=== PATIENT | male | born 1960 | race Caucasian/White ===

== ENCOUNTER 2024-06-10 11:15 | Observation (INO) ==
--- NOTE | 2024-05-18 10:18 | PAT Medication Instructions ---
Medication Instructions Date of Service May 18, 2024 Home Medications aspirin 81 mg capsule 81 mg PO DAILY cholecalciferol (vitamin D3) 25 mcg (1,000 unit) capsule 25 mcg PO DAILY duloxetine 30 mg capsule,delayed release (Cymbalta) 30 mg PO BID fluticasone 500 mcg-salmeterol 50 mcg/dose blistr powdr for inhalation 1 inh inhalation BID gabapentin 300 mg capsule (Neurontin) 600 mg PO TID melatonin 3 mg capsule 3 mg PO HS PRN Insomnia multivitamin 1 tab PO DAILY ondansetron 4 mg disintegrating tablet 4 mg PO Q8H PRN Nausea And Vomiting oxcarbazepine 300 mg tablet (Trileptal) 300 mg PO BID pantoprazole 40 mg tablet,delayed release 40 mg PO QAM polyethylene glycol 3350 17 gram/dose oral powder 17 g PO DAILY PRN Constipation prazosin 2 mg capsule 2 mg PO HS zonisamide 25 mg capsule (Zonegran) 25 mg PO HS Percocet 1 tab PO DAILY PRN Pain ASK your prescriber and surgeon aspirin 81 mg capsule 81 mg PO DAILY DO NOT take the morning of surgery cholecalciferol (vitamin D3) 25 mcg (1,000 unit) capsule 25 mcg PO DAILY multivitamin 1 tab PO DAILY polyethylene glycol 3350 17 gram/dose oral powder 17 g PO DAILY PRN Constipation Take morning of surgery With a small sip of water, OTHERWISE NOTHING TO EAT OR DRINK AFTER MIDNIGHT: duloxetine 30 mg capsule,delayed release (Cymbalta) 30 mg PO BID fluticasone 500 mcg-salmeterol 50 mcg/dose blistr powdr for inhalation 1 inh inhalation BID gabapentin 300 mg capsule (Neurontin) 600 mg PO TID ondansetron 4 mg disintegrating tablet 4 mg PO Q8H PRN Nausea And Vomiting (if needed) oxcarbazepine 300 mg tablet (Trileptal) 300 mg PO BID pantoprazole 40 mg tablet,delayed release 40 mg PO QAM Percocet 1 tab PO DAILY PRN Pain (if needed) Take evening before surgery duloxetine 30 mg capsule,delayed release (Cymbalta) 30 mg PO BID fluticasone 500 mcg-salmeterol 50 mcg/dose blistr powdr for inhalation 1 inh inhalation BID gabapentin 300 mg capsule (Neurontin) 600 mg PO TID melatonin 3 mg capsule 3 mg PO HS PRN Insomnia (if needed) ondansetron 4 mg disintegrating tablet 4 mg PO Q8H PRN Nausea And Vomiting (if needed) oxcarbazepine 300 mg tablet (Trileptal) 300 mg PO BID polyethylene glycol 3350 17 gram/dose oral powder 17 g PO DAILY PRN Constipation (if needed) prazosin 2 mg capsule 2 mg PO HS zonisamide 25 mg capsule (Zonegran) 25 mg PO HS Percocet 1 tab PO DAILY PRN Pain (if needed) Other Notes If you have any questions please call us at [phone] or [phone] or [phone] or [phone]
--- NOTE | 2024-05-23 10:15 | Anesthesiology Consultation ---
Date of Service May 23, 2024 Assessment & Plan (1) Encounter for pre-operative examination: - Infectious disease screening: Per assessment on 05/23/24- No known recent infectious disease contacts or current infectious disease symptoms. - Outpatient joint assessment: Pt currently scheduled for inpatient pathway. If surgeon requests review for outpatient joint pathway, patient is not recommended candidate for outpatient joint program from anesthesia standpoint based on available information. - Cardiology visit (02/29/24): "Reports trials of simvastatin, atorvastatin, Ezetimibe for lipid medication managementadmits with all agents with both scheduled and alternative dosing he experienced muscle adverse effects.. Plan.. Encouraged lifestyle efforts.. ASCVD risk scoreintermediate/high risk.. CAC scoreindicates moderate/high intensity statinunable to tolerate statins.. Advised [id number] initiation for managementpatient will consider.." - Preop request clarification: Patient unaware if either PCP and/or cardiology preop requests needed from surgeon's perspective. Nothing formally ordered on received surgeon preop orders. Ortho visit from 05/23/24 in draft. Surgeon's office ([facility]) made aware that it is at their discretion if further preop evaluations needed (and to arrange if so). Patient acceptable risk for surgery from anesthesia perspective. Chart Review Chart Review: Patient seen in Pre Admission Testing Teaching & Discussion Pre-Anesthesia Teaching/Discussion Notes: Instructed NPO after midnight before surgery,except medications with 15 cc of water. Medication instructions provided according to the PAT guidelines. History Surgery Operation Date: 06/10/24 10:00 Proposed Procedures p Right Reverse Shoulder Arthroplasty, Possible Biceps Tenodesis - Adonay Quispe MD Height/Weight Height: 6 ft Weight: 83.6 kg Allergies Allergy/AdvReac Type Severity Reaction Status Date / Time bupropion [From Wellbutrin] Allergy Unknown Unknown Verified 05/23/24 08:36 ketorolac [From Toradol] Allergy Unknown Unknown Verified 05/23/24 08:36 valproic acid Allergy Unknown Unknown Verified 05/23/24 08:36 atorvastatin AdvReac Intermediate Muscle Verified 05/23/24 08:36 Cramps simvastatin AdvReac Intermediate Muscle Verified 05/23/24 08:36 Cramps effexor Allergy Unknown Unknown Uncoded 05/23/24 08:36 Medications Home Medications Medication Instructions Recorded Confirmed Last Taken aspirin 81 mg capsule 81 mg PO DAILY 04/11/24 05/23/24 Unknown duloxetine 30 mg capsule,delayed 30 mg PO BID 04/11/24 05/23/24 Unknown release (Cymbalta) fluticasone 500 mcg-salmeterol 50 1 inh inhalation BID 04/11/24 05/23/24 Unknown mcg/dose blistr powdr for inhalation gabapentin 300 mg capsule 600 mg PO TID 04/11/24 05/23/24 Unknown (Neurontin) melatonin 3 mg capsule 3 mg PO HS PRN Insomnia 04/11/24 05/23/24 Unknown multivitamin 1 tab PO DAILY 04/11/24 05/23/24 Unknown oxcarbazepine 300 mg tablet 300 mg PO BID 04/11/24 05/23/24 Unknown (Trileptal) pantoprazole 40 mg tablet,delayed 40 mg PO QAM 04/11/24 05/23/24 Unknown release polyethylene glycol 3350 17 17 g PO DAILY PRN Constipation 04/11/24 05/23/24 Unknown gram/dose oral powder prazosin 2 mg capsule 2 mg PO HS 04/11/24 05/23/24 Unknown zonisamide 25 mg capsule (Zonegran) 25 mg PO HS 04/11/24 05/23/24 Unknown Percocet 1 tab PO DAILY PRN Pain 05/12/24 05/23/24 Unknown Past Medical History Medical History Acid reflux Arthritis of right shoulder region Cervical radiculopathy COPD (chronic obstructive pulmonary disease) Coronary artery calcification Per [place] records, this was noted on CTS s/p unremarkable stress test 08/2023, Coronary artery Calcium CT 01/2024 with "No significant coronary artery calcium. Total Agatston score of 366.16 consistent with moderate coronary artery disease" Hearing loss Doesn't wear hearing aids all the time History of trigger finger Right - with carpal tunnel Lung nodule Monitored yearly - [facility] Numbness of upper extremity Bilateral, ongoing x years Exercise / Class Metabolic Activity III < 4 Walking/Shop/Light housework Past Surgical History Surgical History History of arthroscopy of right shoulder History of carpal tunnel release Left History of cervical spinal surgery C3-C7, Hardware present Hx of appendectomy Hx of cardiac catheterization 5+ years ago ([facility]) - No Stents Hx of colonoscopy Hx of esophagogastroduodenoscopy Hx of tonsillectomy Past Anesthesia History No Hx of Anesthesia Complications and No Family Hx of Anesthesia Complications History of PONV No Hx of PONV and No Hx of Motion Sickness Social History Smoking Status: Current every day smoker Smoking cigarettes per day: 1/2 PPD Do You Dip or Chew Tobacco: No Hx Alcohol Use: No Hx Substance Use: Yes (Medical [facility] - Flower- daily) Review of Systems Patient denies chest pain, shortness of breath, fever, chills, cough, wheezing. Physical Exam Vital Signs BP 104/67 P 63 TEMP 98.1 SP02 96%RA RESP 16 Physical Full cervical extension range of motion. Full TMJ range of motion. TMD 3 finger breaths Mallampati Score II Dentition: intact, + implants (sides/molars) Lungs: clear throughout to auscultation Cardiac: regular rate and rhythm, no murmurs noted Spine: normal Carotid arteries: negative bruit Extremities: no LE edema Lab Results Anesthesia Preop Results Results Anesthesia Widget: WBC 10.12 K/ul (4.8-10.8) 05/23/24 Hgb 14.8 g/dl (14.0-18.0) 05/23/24 Hct 43.5 % (42.0-52.0) 05/23/24 Plt 227 K/uL (130-400) 05/23/24 Na 137 mmol/L (136-145) 05/23/24 K 4.6 mmol/L (3.5-5.1) 05/23/24 Cl 103 mmol/L (98-107) 05/23/24 CO2 27 mmol/L (21-32) 05/23/24 BUN 16 mg/dl (6-23) 05/23/24 Creat 0.72 mg/dl (0.6-1.4) 05/23/24 Glucose Level 108 mg/dl (70-99(Fasting)) H 05/23/24 PT 11.2 Seconds (9.0-12.0) 05/23/24 PTT 29 Seconds (21-31) 05/23/24 INR 1.0 (0.9-1.1) 05/23/24 Blood Type B Positive 05/23/24 Antibody Screen NEGATIVE 05/23/24 Testing Electrocardiogram Date: 08/17/23 Findings: + NSR @ (70) Chest X-Ray Date: 02/05/24 No consolidation, pleural effusion or pneumothorax. Mildly exaggerated thoracic kyphosis. Mild convex right curvature thoracic spine. Tortuous aorta unchanged. Echocardiogram Date: 01/07/23 EF 50-55%. Dilated aortic root 3.8cm. Dilated ascending aorta 3.7cm. Mild AI. Normal wall motion. Stress Test Date: 08/17/23 Type: exercise Negative for ischemia by EKG criteria. 10.1 METS. 85% MPHR. Other Testing Coronary artery calcium CT Date: 02/02/24 Findings listed in 02/29/24 cardio note scanned into chart. "No significant coronary artery calcium. Total Agatston score of 366.16 consistent with moderate coronary artery disease.. Mild pericardial effusion. Stable 4 mm nodule in the left lower lobe.. Minimal atelectasis along the medial right middle lobe."
[~2024-06-10 11:15] MED LIST: BUPIVACAINE 0.5 % 5 MG/1 ML PF 10ML VIAL ONE
[2024-06-10] MEDS ORDERED: PROMETHAZINE HCL 6.25 MG in SODIUM CHLORIDE 0.9% 50 ML IV PRN (12:04)
[2024-06-10] MEDS ORDERED: ATROPINE SULFATE 0.1 MG/ML 10ML SYR IV PRN (12:04)
[2024-06-10] MEDS ORDERED: HYDROmorphone INJ 1 MG/ML SYRINGE IV PRN ×2 (12:04→17:11)
[2024-06-10] MEDS ORDERED: fentaNYL citrate PF 100 MCG/2 ML VIAL IV PRN (12:04)
[2024-06-10] MEDS ORDERED: ePHEDrine sulfate 50 MG/ML AMP IV PRN (12:04)
[2024-06-10] MEDS ORDERED: ONDANSETRON INJ 2 MG/ML 2 ML VIAL IV PRN ×2 (12:04→17:11)
[2024-06-10] MEDS: ACETAMINOPHEN 500 MG TAB PO SCH ×2 (12:15→21:14)
[2024-06-10] MEDS: LR 15ML/HR IV SCH (12:15)
[2024-06-10] MEDS: LR 60ML/HR IV SCH (12:16)
[2024-06-10] MEDS ORDERED: LIDOCAINE 2% 2 ML VIAL/AMP(20MG/ML) INFIL ONE (12:54)
[2024-06-10] MEDS ORDERED: PROPOFOL IV EMULSION 10 MG/ML 20 ML VIAL IV ONE ×2 (12:55→16:29)
[2024-06-10] MEDS ORDERED: ROCURONIUM BROMIDE 10 MG/ML 5 ML VIAL IV ONE ×2 (12:56→14:41)
[2024-06-10] MEDS ORDERED: DEXAMETHASONE SOD INJ 4 MG/ML VIAL ONE (12:57)
[2024-06-10] MEDS ORDERED: ONDANSETRON INJ 2 MG/ML 2 ML VIAL ONE (12:57)
[2024-06-10] MEDS ORDERED: MIDAZOLAM HCL 1 MG/ML 2ML VIAL ONE (12:58)
[2024-06-10] MEDS ORDERED: fentaNYL citrate PF 100 MCG/2 ML VIAL ONE (12:59)
--- NOTE | 2024-06-10 13:22 | History & Physical Bridge Note ---
Date of Service June 10, 2024 History & Physical Bridge Note I have examined the patient, reviewed the History & Physical and in the interval since the performance of the History & Physical I have noted the following changes of clinical significance: no changes noted
[2024-06-10] MEDS: TRANEXAMIC ACID 1,000 MG **IV Pre-op IV SCH (13:24)
[2024-06-10] MEDS: ceFAZolin 2000MG 2,000 MG/15 ML SYR IV SCH ×2 (14:03→22:12)
[2024-06-10] MEDS ORDERED: ALBUTEROL HFA 8 GM INHALER INH ONE (14:13)
[2024-06-10] MEDS: TRANEXAMIC ACID 1,000 MG **IV Intra-op IV SCH (16:00)
[2024-06-10] MEDS ORDERED: SUGAMMADEX SODIUM 200 MG/2 ML VIAL IV ONE (16:26)
--- NOTE | 2024-06-10 16:48 | Operative Report ---
PG Post Operative Report Pre & Post Diagnosis Operation Date: 06/10/24 13:00 Pre-Op Diagnosis: Arthritis of Right Shoulder Region, Rotator cuff tendinopathy, biceps tendonitis Post-Op Diagnosis: Arthritis of Right Shoulder Region, Rotator cuff tendinopathy, biceps te ndonitis, Shoulder Contracture I identified the patient and participated in the time-out.: Yes Procedure Operation Date: 06/10/24 13:00 Actual Procedures p Right Reverse Shoulder Arthroplasty, Biceps Tenodesis(Right) - Adonay Quispe MD Surgeon Adonay Quispe MD Automatic Beading Lathe Operator Dianna Dailey PA-C Estimated Blood Loss 150 Findings See Below Arthrex Univers Reverse Shoulder Arthroplasty was performed: Stem [place] size 13, 36 mm +2 offset suture cup, 36+3 humeral insert with Spacer +6, 24 mm 10 degree full standard augment baseplate, 20 mm modular post, 36+4/24 modular glenoid system glenosphere, Univers peripheral nonlocking screw 4.5 mm x 28 and 32 mm, Univers peripheral locking screw 5.5 x 24 and 24 mm EXAMINATION UNDER ANESTHESIA: Preoperative exam under anesthesia revealed the followin degrees of forward flexion, 30 degrees external rotation at the side, 90 degrees of abduction, 25 degrees of external rotation and 10 degrees of internal rotation with the arm abducted. Postoperatively, range of motion parameters after implantation of prosthesis revealed a stable prosthesis with range of motion parameters as follows: 130 of forward flexion, 45 of external rotation at the side, 120 of abduction, 90 of external rotation with the arm abducted, 30 of internal rotation with the arm abducted. The patient's safe range of motion included the ability to get to the back of the head. Internal rotation to the belly without significant tension. Specimens humeral head to pathology by routine Anesthesia Type General Regional Complications none Disposition Accompanied Patient To Recovery: Yes Disposition: Recovery Room Indications 64-year-old male presented with progressive, chronic left shoulder pain and rotator cuff dysfunction after previous shoulder arthroscopy with an outside clinic where advanced arthrosis was noted. Physical exam and advanced imaging were consistent with glenohumeral osteoarthritis and rotator cuff tendinosis with impingement, as well as bicipital tendinitis. Given the chronic pain related arthritis and rotator cuff dysfunction, I did offer reverse shoulder arthroplasty with bicipital tenodesis to address the symptoms. We reviewed the risk, benefits, and alternatives of this intervention in detail, as outlined in several clinical notes. Informed consent was documented in clinic, as the patient desired to proceed. Description of Procedure The patient was identified in the preoperative holding area. The operative extremity was marked. Regional block was administered by Anesthesia. The patient was then brought to the operating room and placed supine. Preliminary time-out procedure was performed. All were in agreement. General endotracheal anesthesia was induced without any issues. The patient was sat up in around 40-45 degrees of inclination in the beachchair position. Exam under anesthesia was performed confirming the above findings. Preoperative antibiotics were administered. TXA was infused. Sequential compressive devices were placed on her bilateral lower extremities for DVT prophylaxis. Bony prominences were inspected, well-padded and free of any evidence for peripheral nerve compression. The entire operative upper extremity was then prepped and draped in a normal sterile fashion for shoulder surgery, with use of padded Alejandre to hold the arm. Prior to incision, a second time-out procedure was performed confirming the patient, site, laterality and the procedure. All were in agreement. 1. Right shoulder open reverse total shoulder replacement with Arthrex Univers Revers system: A deltopectoral incision was utilized. Incision was carried out sharply and with electrocautery through the skin and subcutaneous tissues. The deltopectoral interval was developed. The cephalic vein was taken laterally. Subdeltoid space was developed bluntly. A deltoid brown retractor was placed to retract the deltoid laterally and superiorly. 1 cm of the superior border of the pectoralis major tendon insertion site was released in standard fashion to improve exposure. Clavipectoral fascia was removed with electrocautery. Extensive subacromial bursitis was encountered and this was completely removed with a Bovie. The lateral aspect of the conjoined tendon was then followed to its insertion site on the coracoid. The conjoined tendon was retracted medially. The biceps tendon was identified, enlarged consistent with tendinopathy. He was released space and the Bovie proximally along its tract to the superior labrum. It was freed from the biceps groove. A tenodesis was performed to the pectoralis major tendon as will be discussed in further detail below. A sharp Hohmann retractor was then placed into the interval and into the joint. Subscapularis tendon was still present and attached on the lesser tuberosity. The articular surface of the humeral head could be appreciated. The capsule with the subscapularis tendon was then released up the inferior humeral neck as one layer. The humeral head dislocated with successive extension and external rotation. Visualization of the humeral head revealed significant osteoarthritis and wear. The rotator cuff had tendinopathy and partial-thickness tearing of the subscapularis and full-thickness tearing of this infraspinatus. The top of the humeral head was identified. A starting pin was used to sound the humeral canal. The bone quality was moderate. Opening reamers were used to define the canal. The 6 mm reamer allowed alignment with the canal. The cutting guide was then placed on the reamer handle in the usual fashion. Humeral head appeared to be in 35-40 degrees of retroversion. The cutting guide was fixed with a breakaway pins. Sagittal saw was then used to create the humeral head cut. Blunt Hohmann was used posteriorly to ensure safety with a saw. Humeral head covering cap was then placed. We then proceeded over to glenoid. An anterior glenoid neck retractor was placed. The MGHL and SGHL were released off of the muscular portion of the subscapularis being mindful of palpating and identifying the axillary nerve to make sure it was free of injury during releases. Next, the interval between the IGHL and the muscular portions of the subscapularis was identified. My finger was on the axillary nerve to protect it during releases. The IGHL was then released up to around the 7 o'clock position. A blunt retractor was then placed to retract the humerus posteriorly. A sharp Hohmann retractor was placed at the 12 o'clock position. The glenoid deformity was evaluated. Extraneous capsulolabral tissue was dissected to reveal the bone anatomy. This confirmed our decision to proceed with preoperative virtual planning. The arm was placed around 30 degrees of flexion, 90 degrees of external rotation and 30 degrees of abduction to distract the humerus posteriorly. Labrum was circumferentially removed including the biceps tendon stump with a Bovie. The VIP positioning guide cannot sit with the plate in position because of the humeral head and posterior glenoid retractor being in the way. Additional inferior capsule was released with protection of the axillary nerve. We downsized the posterior glenoid retractor, but still cannot adequately access the VIP guide onto the glenoid face with good confidence. The humeral head was then dislocated once again to consider another humeral head. It did appear that there was some posterior articular surface and remaining, so the cut guide was replaced. Deeper neck cut. We reposition for glenoid exposure and use a smaller glenoid retractor in the posterior rim. This allowed better visualization. Arthrex virtual implant positioning guide set to the preplanned parameters was used to place an initial guide pin. The augment template was then placed. It seemed that we are in the appropriate position with our central pin and the augment would fit well. The short starting reamer was used over the pin to control depth. The 10 degree full augment reamer was then used over the pin after drilling the starting position. The depth was judged based on the preoperative plan. Once cartilage debrided from the subchondral bone the preparation was evaluated. We then reamed to the depth matching the preoperative plan. The central post drill was then used over the pin. There was no breach of the vault. Copious irrigation was performed to irrigate out the joint. The augment template was then dropped over the pin. There was good fill and fit and implant match. The planned glenoid baseplate and central post were then placed. The implant was firmly tamped down with good capture of the central post. We then drilled, measured, and placed 4 baseplate screws in the available positions. The inferior and superior positions were compression screws, while the anterior and posterior positions were locking screws. These were preplanned on the VIP system. The final construct appeared to be extremely strong as the entire glenoid and scapula moved together as one unit confirming excellent fixation of the baseplate. The peripheral assembler handbags was then used to clear out soft tissue and osteophytes that would impinge on the backside of the glenosphere. Next, the planned glenosphere was confirmed and opened on the back table. The glenosphere was then seated into the baseplate and impacted onto the mayberry taper. A dorado was used to test fixation, before resetting with additional mall eting. The central fixation screw was then placed. The joint was then copiously irrigated. Humerus was then brought back into view with external rotation, deltoid brown retractor and multiple blunt Homans. Successive trial broaches were then broached up to a size 13, which gave us excellent press-fit and agreed with the virtual plan. The trial stem was left in place. The cup reamer was used over the offset post. This area was irrigated. The final stem and suture cup prosthesis was then brought onto the field. It was positioned according to the rotation determined and impacted for a firm fix. A trial liner was then placed that would best accommodate the anatomy. The humerus was then reduced onto the glenoid with the arm in abduction and external rotation. There was room for more tensioning, so we subsequently upsized to a +9, which required a liner and spacer. The arm was taken out of the dwyer, taken through a physiologic range of motion. No evidence for impingement. No evidence for kick off. No shuck. Thus, the trials would be a most appropriate for stability. Final humeral spacer and poly component were opened. The tray spacer was fixed with the screw. The final poly was then placed. With the final components in place, humeral component was then reduced onto the glenosphere and final postoperative range of motion assessment was performed. Stability confirmed. This completed the open reverse total shoulder replacement. 2. Open biceps tenodesis: As dictated above, enlargement of the biceps tendon was noted consistent with tendinopathy. The tenodesis was necessary to keep appropriate tension relationship with the long head bicep. The tendon was released from the bicipital sheath using a Bovie and then tenodesed to the pectoralis major tendon using a #2 FiberWire suture in [id number] fashion 2 separate times. The tendon was then followed up as proximal as could be visualized and then tenotomized. Remaining stump was removed just proximal to the tenodesis site. This completed the open biceps tenodesis. The routine closing sequence was begun. Thorough pulse lavage irrigation was performed. Next, a 2-minute iodine solution soak was performed. The arm is held at 90 degrees of abduction and neutral rotation to allow the solution to lay in the wound. Gentle lavage using iodine solution was performed for 2 minutes. Pulse lavage was then used to thoroughly irrigate out the iodine solution. The wound was copiously irrigated. A total of 3 L normal saline was used. The deltopectoral interval was closed with #1 Vicryl suture. Subcutaneous tissues were closed with 2-0 Vicryl suture in a buried, interrupted fashion. Skin was closed with jacobo. The wound was dressed with xeroform, gauze, and ABDs, contained by Ioban. The patient was placed in a standard sling and turned over to the anesthesia team. The patient tolerated the procedure well, was extubated in the operating room without complication, and transferred to the PACU in stable condition. DISPOSITION: The patient will remain in sling for a total of 4 weeks. He will be admitted for observation based on preanesthetic testing recommendations and history of chronic opioid therapy. Routine postoperative oral antibiotic prophylaxis will be prescribed at discharge. Hand, wrist, and elbow range of motion exercises may be initiated. Formal therapy will be initiated starting with gentle active assisted range of motion. No strengthening will be permitted before 12 weeks. Physician investment sales assistant attestation: Dianna Dailey PA-C was present and scrubbed for the duration of the case. Skilled assistance was essential to prepping/draping, patient positioning, retraction, and wound closure. I attest to the content of the Intraoperative Record and any orders documented therein. Any exceptions are noted below.
[2024-06-10] MEDS ORDERED: diphenhydrAMINE 50 MG/ML VIAL IV PRN (17:11)
[2024-06-10] MEDS ORDERED: ALUMINUM/MAGNESIUM SUSP 30 ML UDC PO PRN (17:11)
[2024-06-10] MEDS ORDERED: MAGNESIUM HYDROXIDE SUSP 30 ML UDC PO PRN (17:11)
[2024-06-10] MEDS ORDERED: bisacodyL 10 MG SUPP PR PRN (17:11)
[2024-06-10] MEDS ORDERED: HYDROmorphone INJ 0.5 MG/0.5 ML SYR IV PRN (17:11)
[2024-06-10] MEDS ORDERED: NALOXONE HCL 0.4 MG/1 ML VIAL/CARP IV PRN (17:11)
[2024-06-10] MEDS ORDERED: POLYETHYLENE (MIRALAX) 17 GM PACK PO PRN (17:17)
[2024-06-10] MEDS ORDERED: MELATONIN 3 MG TAB PO PRN (17:36)
--- NOTE | 2024-06-10 17:51 | Anesthesiology Progress Note ---
Date of Service June 10, 2024 Anesthesia Post Procedure Vital Signs Vital Signs: Temp Pulse Pulse Resp BP Pulse Ox O2 Del Method 06/10/24 17:45 36.4 C L 64 19 98/58 L 92 Nasal Cannula, Oxymask 06/10/24 17:35 67 18 106/58 L 91 Nasal Cannula, Oxymask 06/10/24 17:25 76 12 112/59 L 92 Oxymask 06/10/24 17:10 72 25 H 106/59 L 92 Oxymask 06/10/24 17:00 36.1 C L 76 20 119/61 96 Oxymask 06/10/24 14:45 36.4 C L 64 19 98/58 L 91 Nasal Cannula, Oxymask 06/10/24 11:44 36.7 C 68 20 122/77 96 Room Air O2 Flow Rate 06/10/24 17:45 3 06/10/24 17:35 3 06/10/24 17:25 5 06/10/24 17:10 10 06/10/24 17:00 10 06/10/24 14:45 3 06/10/24 11:44 Pain Intensity Right Shoulder: Pain Intensity: 8 Transfer of Care Handoff Completed per policy Notes Mental Status: alert / awake / arousable and participated in evaluation Patient Amnestic to Procedure: Yes Nausea / Vomiting: adequately controlled Pain: adequately controlled Airway Patency, RR, SpO2: stable & adequate BP & HR: stable & adequate Hydration State: stable & adequate Anesthetic Complications: no major complications apparent
--- NOTE | 2024-06-10 18:43 | XRay Report ---
EXAM: XR shoulder RT min 2V routine CLINICAL HISTORY: Post shoulder surgery TECHNIQUE: X-ray images of the right shoulder were obtained in anteroposterior (AP) and Y-view projections. 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 FINDINGS: Bone Structure: Evidence of the glenohumeral joint replacement by metallic prosthesis showing good alignment. no related complication. No fractures or dislocations. Joint Spaces: mild widening of the acromioclavicular joint space with mild inferior position of the acromion in relation to the clavicle. This likely represents mild subluxation/dislocation. For clinical correlation. Soft Tissues: Mild soft tissue swelling and air lucency, which may represent recent post-operative changes. for clinical correlation. The included part of the neck shows evidence of prior cervical intervention. IMPRESSION: 1. Evidence of the glenohumeral joint replacement by metallic prosthesis showing good alignment. No related complication (new). 2. Mld widening of the acromioclavicular joint space with mild inferior position of the acromion in relation to the clavicle. This likely represents mild subluxation/dislocation. For clinical correlation. (more evident than the prior studies) 3. Mild soft tissue swelling and air lucency, which may represent recent post-operative changes. for clinical correlation. Disclaimer: A subtle bone abnormality or fracture may not be readily apparent on X-rays, thus clinical correlation and further imaging including follow-up CT, MRI, or follow-up X-rays are advised as needed. Electronically signed by Manuel Thornton 06-10-2024 6:43 PM
[2024-06-10] MEDS: PRAZOSIN HCL 1 MG CAP PO SCH (21:02)
[2024-06-10] MEDS: DULoxetine HCL 30 MG CAP PO SCH (21:03)
[2024-06-10] MEDS: GABAPENTIN 300 MG CAP PO SCH (21:04)
[2024-06-10] MEDS: OXcarbazepine 150 MG TABLET PO SCH (21:05)
[2024-06-10] MEDS: DOCUSATE SODIUM 100 MG CAP PO SCH (21:14)
[2024-06-10] MEDS: KETOROLAC 30 MG/ML VIAL IV SCH (21:15)
[2024-06-10] MEDS: SENNA 8.6 MG TAB PO SCH (21:15)
[2024-06-10] MEDS: oxyCODONE HCL IR 5 MG TAB (IMMEDIATE RELEASE) PO PRN (21:25)
[2024-06-10] MEDS: ZONISAMIDE 25 MG CAPSULE PO SCH (22:08)
[2024-06-11] MEDS: BUPIVACAINE LIPOSOME 1.3% 133 MG/10 ML VIAL ONE (02:00)
[2024-06-11 07:13] VITALS: BP 136/72; PULSE 69; RESP 18; TEMP 97.7; O2SAT 93
[2024-06-11 07:21] LABS: Basophils # (auto) 0.03 K/uL (0.00-0.20); Basophils % (auto) 0.2 %; Eosinophils # (auto) 0.05 K/uL (0.00-0.50); Eosinophils % (auto) 0.3 %; Hematocrit (blood only) 37.3 % (42.0-52.0); Hemoglobin 12.5 g/dl (14.0-18.0); Immature Granulocytes # (auto) 0.06 K/uL (0.01-0.20); Immature Granulocytes % (auto) 0.4 %; Lymphocytes # (auto) 2.44 K/uL (1.20-3.40); Mean Corpuscular Hemoglobin 31.5 pg (25.0-34.0); Mean Corpuscular Hgb Conc 33.5 g/dL (32.0-36.0); Mean Platelet Volume 11.1 fL (9.4-12.4); Monocytes # (auto) 1.49 K/uL (0.11-0.59); Monocytes % (auto) 9.8 %; Neutrophils # (auto) 11.15 K/uL (1.40-6.50); Neutrophils % (auto) 73.3 %; Platelet Count 195 K/uL (130-400); RDW Coefficient of Variation 12.9 % (11.5-14.5); RDW Standard Deviation 44.6 fL (36.4-46.3); Red Blood Count 3.97 M/uL (4.70-6.10); White Blood Count 15.22 K/ul (4.8-10.8)
[2024-06-11 07:42] LABS: BUN Creatinine Ratio 24.1 (10-20); Calcium 8.5 mg/dl (8.6-10.3); Creatinine Clr Calc Pharmacy 103.7 ml/min; Potassium 4.2 mmol/L (3.5-5.1)
[2024-06-11] MEDS: ASPIRIN 81 MG ECTAB PO SCH (07:57)
[2024-06-11] MEDS: PANTOprazole 40 MG TAB PO SCH (07:57)
[2024-06-11] MEDS: MULTIVITAMIN TAB PO SCH (07:57)
[2024-06-11] MEDS: FLUTICASONE/VILANTEROL 200/25MCG 14 PUFFS/INHALER INH SCH (07:58)
--- NOTE | 2024-06-11 08:25 | Orthopedic Progress Note ---
Date of Service June 11, 2024 Assessment & Plan (1) History of reverse total replacement of right shoulder joint: (2) Arthritis of right shoulder region: (3) Cervical radiculopathy: Plan POD 1 right reverse shoulder arthroplasty with biceps tenodesis. Making uncomplicated progress. Should be ready for discharge today. - PT and OT evaluations for discharge safety this morning - Continue current pain management. Discussed expectations. - June take dressing down and shower on Thursday - Follow-up at the scheduled postop in 10-14 days. Subjective Resting this morning. Reports that he had no pain in his right arm or shoulder, but he experienced a lot of burning pain in his left hand which is chronic. Wants to get that evaluated in our clinic. Has been working it up through the [employer]. Otherwise no issues Review of Systems All systems reviewed & are unremarkable except as noted in HPI & below. Physical Exam Right shoulder: Dressings clean and dry and intact. Intact motor to the hand. Sensation the axillary nerve also intact this morning Constitutional WD/WN, vitals as above no acute distress and not intoxicated appearing Respiratory normal respiratory effort; no labored breathing Cardiovascular Extremities: normal capillary refill Results & Data Results & Data Laboratory Results H & H / Range/Units 06:20 Hgb 12.5 L (14.0-18.0) g/dl Hct 37.3 L (42.0-52.0) % Diagnostic Findings Postop x-ray showed no implant complications PG Care Time/CCT Total # of Minutes Spent Total Time Spent with Patient: Total time spent is greater than 50% in coordination of care (as documented) at patient's floor/unit and/or counseling patient: Coding Level of Care Code 84335 Post Operative Follow-Up Diagnoses History of reverse total replacement of right shoulder joint Z96.611 Arthritis of right shoulder region M19.011 Cervical radiculopathy M54.12
[2024-06-11] MEDS ORDERED: NON-FORMULARY MEDICATION (Multivitamin tablet) PO SCH (09:00)
--- NOTE | 2024-06-15 07:48 | Discharge Summary ---
Date of Service June 11, 2024 Admission HPI (Per Admitting) 64-year-old male presented with progressive, chronic left shoulder pain and rotator cuff dysfunction after previous shoulder arthroscopy with an outside clinic where advanced arthrosis was noted. Physical exam and advanced imaging were consistent with glenohumeral osteoarthritis and rotator cuff tendinosis with impingement, as well as bicipital tendinitis. Given the chronic pain related arthritis and rotator cuff dysfunction, I did offer reverse shoulder arthroplasty with bicipital tenodesis to address the symptoms. We reviewed the risk, benefits, and alternatives of this intervention in detail, as outlined in several clinical notes. Informed consent was documented in clinic, as the patient desired to proceed. Admission Exam (Per Admitting) Musculoskeletal ORTHOPEDIC EXAM:Right Shoulder: He can forward flex to about 120 degrees, abduct to about 70 degrees, and externally rotate to 15 degrees. Internally rotate to his lower lumbar spine. He has pain to the end range of all motion. He has significant irritability with impingement maneuvers and intact strength on rotator cuff manual muscle testing. He is tender over the biceps groove. Principal Diagnosis Same as "Discharge Diagnosis" noted below under Discharge Instructions. Discharge Exam Right shoulder: Dressings clean and dry and intact. Intact motor to the hand. Sensation the axillary nerve also intact this morning Discharge Data Procedures Performed Operation Date: 06/10/24 13:00 Actual Procedures p Right Reverse Shoulder Arthroplasty, Biceps Tenodesis(Right) - Adonay lacey MD Ordered Studies 06/10/24 05:00 US - OR guided needle placemen Routine Hospital Course (1) History of reverse total replacement of right shoulder joint: POD 1 right reverse shoulder arthroplasty with biceps tenodesis. Making uncomplicated progress. Should be ready for discharge today. - PT and OT evaluations for discharge safety this morning - Continue current pain management. Discussed expectations. - May take dressing down and shower on Thursday - Follow-up at the scheduled postop in 10-14 days. PG Care Time/CCT Total # of Minutes Spent Total Time Spent with Patient: Total time spent is greater than 50% in coordination of care (as documented) at patient's floor/unit and/or counseling patient: Discharge Plan Discharge Items Patient Disposition: Home - Self-Care Reason For Visit: Arthritis of Right Shoulder Region Discharge Diagnosis: Reverse shoulder replacement for shoulder arthritis Activity: Per Instructions section Non-emergency contact: Primary Care Provider Call non-emergency contact if: you have any medication questions and your temperature is above 101 Follow-up/Referrals: Adonay Quispe MD [Surgeon] - [facility] [Primary Care Provider] - Diet: Regular Addtl Attending Provider Instructions: Adonay Quispe M.D. [facility] [address] [place] [address] Dressing Care: Leave the dressing in place for 3 days. After 3 days you may remove the dressing. If the incision is not draining, you do not have to re-cover the dressing. Star will be removed at your postop appointment. If there is a little bit of drainage or if the wound is bothersome with your clothing, cover the incision with a dry dressing. Do not use any ointments or topical medications unless directed by your surgeon. Do not submerse the incisions in water no pools, oceans, lakes, jacuzzis, bathtubs, etc for at least 3 weeks. Showering: After 3 days you may remove the dressing and shower normally. Allow soap and water to run over the incision and pat dry. Do not scrub or soak the incision. Activity and Therapy Recommendations: - If you are not using home therapy then Outpatient Physical Therapy should start about 3-5 days from your day of surgery. Therapy will last about 8-12 weeks - Wear your sling for 3 weeks, unless otherwise instructed. You may remove your sling to shower and to dress, but otherwise, you should be in your sling at all times, including while sleeping - The shoulder replacement is very stable and you can use your hand while in the sling - You were shown a series of exercises in the hospital. Do these exercises daily including the exercises you were shown in physical therapy. - NO EXTERNAL ROTATION - do not reach out to your side. Pain Control: Use frequent ice to reduce amount of pain medications. Use for 30 minutes per hour. Do not leave in place longer than 30 minutes, especially when your block is in effect, to prevent frostbite or thermal injury. Medications: - Opioid: You will likely be sent home with a prescription for the opioid pain medication. Use as directed, as needed. - Other medications may be prescribed for specific circumstances. If you have any questions, please call the office at . - Resume previous home medications unless otherwise instructed Follow-Up: 1. Ortho Clinic with Dr. Quispe: You should be seen in 10-14 days. Please call immediately to schedule if you do not have an appointment. Pending Studies at Discharge: No Stand-Alone Forms: [facility], Smoking Cessation Medications and DC Order Prescriptions: New acetaminophen [Tylenol Extra Strength] 500 mg Tablet 1,000 mg PO Q8 Qty: 90 0RF oxycodone 5 mg Tablet 5 - 10 mg PO Q4H PRN (Reason: pain (scale score 7-10)) Qty: 30 0RF cefadroxil 500 mg capsule 500 mg PO BID 10 Days Qty: 20 0RF Continued gabapentin [Neurontin] 300 mg capsule 600 mg PO TID aspirin 81 mg capsule 81 mg PO DAILY duloxetine [Cymbalta] 30 mg capsule,delayed release(DR/EC) 30 mg PO BID fluticasone propion-salmeterol 500-50 mcg/dose blister with device 1 inh inhalation BID melatonin 3 mg capsule 3 mg PO HS PRN (Reason: Insomnia) multivitamin Tablet 1 tab PO DAILY oxcarbazepine [Trileptal] 300 mg tablet 300 mg PO BID pantoprazole 40 mg tablet,delayed release (DR/EC) 40 mg PO QAM polyethylene glycol 3350 17 gram/dose powder 17 g PO DAILY PRN (Reason: Constipation) prazosin 2 mg capsule 2 mg PO HS zonisamide [Zonegran] 25 mg capsule 25 mg PO HS Held Percocet 1 tab PO DAILY PRN (Reason: Pain) Hold Instructions: Resume on 06/27/24. Contact your primary care physician if you want to continue this medication for chronic pain Discharge Orders: Discharge Order (Routine); Ordered 06/11/24 Ordered By: Adonay Quispe Admission Data Admit Date/Time: 06/10/24 17:11 Attending Provider: Adonay Quispe Admit Provider: Adonay Quispe Primary Care Provider: [facility] Other Interventions: Discharge Summary Assessment (RN) Last Done: 06/11/24 10:42
== END 2024-06-11 12:22 | disposition home or self-care (01) ==
LOC: 3N 11:15 → ASU 11:15